=== PATIENT | male | born 1950 | race Caucasian/White ===

== ENCOUNTER 2017-10-20 09:53 | Observation (INO) | payer MEDICARE ==
[~2017-10-20] VITALS: Ht 185.4 cm; Wt 113.4 kg
[2017-10-20] MEDS ORDERED: NITROGLYCERIN 0.4 MG SUBL SL PRN ×2 (10:15→13:15)
[2017-10-20] MEDS ORDERED: ASPIRIN 325 MG TAB PO ONE ×2 (10:15→14:30)
--- NOTE | 2017-10-20 10:59 | Diagnostic Imaging Report ---
PROCEDURE:X-RAY CHEST, ONE VIEW COMPARISON:None. INDICATIONS:CHEST PAIN FINDINGS: There are no consolidations, pleural effusions or pneumothorax. The cardiomediastinal silhouette and pulmonary vasculature are normal. There are no acute osseous abnormalities. There are degenerative changes of the spine. Chronic appearing left AC joint separation. CONCLUSION: No acute cardiopulmonary abnormality. Noe Brand D.O. Dictated by: Noe Brand D.O. on 10/20/2017 at 11:00 Electronically approved by: Noe Brand D.O. on 10/20/2017 at 11:00
[2017-10-20] MEDS ORDERED: ATORVASTATIN CA10 MG PO (11:42)
[2017-10-20] MEDS ORDERED: METFORMIN HCL500 MG PO (11:42)
[2017-10-20] MEDS ORDERED: COQ-1030 MG PO (11:42)
[2017-10-20] MEDS ORDERED: TAMSULOSIN HCL0.4 MG PO (11:42)
[2017-10-20] MEDS ORDERED: MULTI-VITAMIN1 EACH PO (11:42)
[2017-10-20] MEDS ORDERED: BENAZEPRIL HCL10 MG PO (11:42)
[2017-10-20 11:53] LABS: BASOPHILS # (AUTO) 0.1 (0.0-0.1); BASOPHILS % 0.6 % (0.0-1.0); EOSINOPHILS # (AUTO) 0.1 (0.0-0.4); HEMATOCRIT 40.1 % (38.2-49.6); LYMPHOCYTES # (AUTO) 1.2 (1.0-3.2); LYMPHOCYTES % 15.1 % (18.0-39.1); MEAN CORPUSCULAR HGB CONC 32.4 g/dL (31-35); MEAN CORPUSCULAR VOLUME 86.4 fL (81-99); MONOCYTES # (AUTO) 0.4 (0.2-0.8); MONOCYTES % 5.1 % (4.4-11.3); NEUTROPHILS # (AUTO) 6.4 (2.1-6.9); NEUTROPHILS % 77.8 % (38.7-80.0); PLATELET COUNT 197 x10e3/uL (140-360); RED BLOOD COUNT 4.64 x10e6/uL (4.3-5.7); RED CELL DISTRIBUTION WIDTH 13.2 % (11.7-14.4)
[2017-10-20 12:12] LABS: ALANINE AMINOTRANSFERASE 32 IU/L (0-55); ALBUMIN 3.8 g/dL (3.5-5.0); ALBUMIN/GLOBULIN RATIO 0.9 (0.8-2.0); ALKALINE PHOSPHATASE 73 IU/L (40-150); BLOOD UREA NITROGEN 16 mg/dL (7-26); BUN/CREATININE RATIO 14 (6-25); CARBON DIOXIDE 27 mmol/L (22-29); CHLORIDE 105 mmol/L (98-107); CHOL/HDL RATIO 3.3 (3.9-4.7); CHOLESTEROL 171 MD/DL (0-199); CREATININE, SERUM 1.18 mg/dL (0.72-1.25); EST GLOMERULAR FILTRATION RATE > 60 ML/MIN (60-); GLUCOSE 127 mg/dL (74-118); HDL CHOLESTEROL 52 MG/DL (40-60); LDL CHOLESTEROL 88 MG/DL (60-130); SODIUM 140 mmol/L (136-145); TRIGLYCERIDES 154 MG/DL (0-149)
[2017-10-20] MEDS ORDERED: MORPHINE SULFATE 2 MG/ML SYR IV PRN (13:15)
[2017-10-20] MEDS ORDERED: ASPIRIN 81 MG CHEW TAB PO ONE (13:15)
--- OUTSIDE RECORDS SUMMARY | 2017-10-20 13:57 | XMS REPORT ---
Author Author [facility] Address Unknown Phone Unavailable Care Team Providers Care Building Code Inspector Name Role Phone VERITO GIRARD Unavailable Unavailable Problems This patient has no known problems. Allergies, Adverse Reactions, Alerts This patient has no known allergies or adverse reactions. Medications This patient has no known medications. Results Test Description Test Time Test Comments Text Results Atomic Results Result Comments CHEST SINGLE (NOT PORTABLE) [place] [id number] Patient Name: STEPHANIE ANGULO MR #: [id number] : 1950 Age/Sex: 67/M Req #: [id number] Adm Physician: Ordered by: VERITO GIRARD MD Report #: [id number] Location: ER Room/Bed: Procedure: [id number] DX/CHEST SINGLE (NOT PORTABLE) Exam Date: 10/20/17 Exam Time: 1015 REPORT STATUS: Signed PROCEDURE: X-RAY CHEST, ONE VIEW COMPARISON: None. INDICATIONS: CHEST PAIN FINDINGS: There are no consolidations, pleural effusions or pneumothorax. The cardiomediastinal silhouette and pulmonary vasculature are normal. There are no acute osseous abnormalities. There are degenerative changes of the spine. Chronic appearing left AC joint separation. CONCLUSION: No acute cardiopulmonary abnormality. Ethel Brand D.O. Dictated by: Ethel Brand D.O. on 10/20/2017 at 11:00 Electronically approved by: Ethel Brand D.O. on 10/20/2017 at 11:00 Dictated By: ETHEL BRAND DO 1100 Transcribed By: ROBERTO on 10/20/17 1100 COPY TO: VERITO GIRARD MD
[2017-10-20] MEDS: FAMOTIDINE 20 MG TAB PO SCH (14:20)
[2017-10-20 15:02] LABS: CREATINE KINASE MB 2.2 ng/mL (0-5.0)
[2017-10-20 16:30] VITALS: BP 148/74
[2017-10-20] MEDS ORDERED: PANTOPRAZOLE SO40 MG PO (16:35)
[2017-10-20 16:38] VITALS: BP 148/74
[2017-10-20] MEDS ORDERED: ENOXAPARIN SODIUM INJ 100 MG/ML SYR SC STA (17:49)
[2017-10-20 17:58] LABS: INR 1.06
[2017-10-20 17:59] LABS: PARTIAL THROMBOPLASTIN TIME 27.1 seconds (23.8-35.5)
[2017-10-20] MEDS ORDERED: DEXTROSE 50% SYRINGE 50 ML IV PRN (18:00)
[2017-10-20 18:01] LABS: CREATINE KINASE 153 IU/L (30-200)
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
[2017-10-20 20:00] VITALS: BP 140/65
[2017-10-20 20:15] VITALS: BP 140/65
[2017-10-20] MEDS ORDERED: TAMSULOSIN HCL 0.4 MG CAP PO SCH (21:00)
[2017-10-20] MEDS ORDERED: ATORVASTATIN 10 MG TAB PO SCH (21:00)
[2017-10-20] MEDS: INSULIN LISPRO 100 UNIT/1 ML 3ML VIAL SQ SCH (21:00)
[2017-10-20] MEDS ORDERED: BENAZEPRIL HCL 10 MG TAB PO SCH (21:41)
[2017-10-20 23:03] LABS: CREATINE KINASE 138 IU/L (30-200)
[2017-10-21] VITALS: BP_SYST 129; BP_SYST 148; BP_DIAS 61; BP_DIAS 66
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
[2017-10-21] MEDS: FAMOTIDINE 20 MG TAB PO SCH (02:14)
[2017-10-21 02:45] LABS: CREATINE KINASE 126 IU/L (30-200)
[2017-10-21 05:00] VITALS: BP 140/70
[2017-10-21] MEDS ORDERED: ACETAMINOPHEN 325 MG TAB PO PRN (07:30)
[2017-10-21] MEDS ORDERED: PANTOPRAZOLE SOD 40 MG TABEC PO SCH (07:30)
[2017-10-21 07:33] LABS: ALANINE AMINOTRANSFERASE 26 IU/L (0-55); ALBUMIN 3.4 g/dL (3.5-5.0); ALBUMIN/GLOBULIN RATIO 0.9 (0.8-2.0); ALKALINE PHOSPHATASE 64 IU/L (40-150); ANION GAP 10.7 mmol/L (8-16); BLOOD UREA NITROGEN 16 mg/dL (7-26); BUN/CREATININE RATIO 15 (6-25); CALCIUM 9.6 mg/dL (8.4-10.2); CARBON DIOXIDE 26 mmol/L (22-29); CHLORIDE 102 mmol/L (98-107); CHOL/HDL RATIO 3.5 (3.9-4.7); CHOLESTEROL 152 MD/DL (0-199); CREATININE, SERUM 1.09 mg/dL (0.72-1.25); EST GLOMERULAR FILTRATION RATE > 60 ML/MIN (60-); GLUCOSE 136 mg/dL (74-118); HDL CHOLESTEROL 44 MG/DL (40-60); LDL CHOLESTEROL 67 MG/DL (60-130); POTASSIUM 3.7 mmol/L (3.5-5.1); SODIUM 135 mmol/L (136-145); THYROID STIMULATING HORMONE 2.116 uIU/mL (0.350-4.940); TRIGLYCERIDES 206 MG/DL (0-149)
[2017-10-21 07:49] LABS: BASOPHILS # (AUTO) 0.1 (0.0-0.1); BASOPHILS % 0.8 % (0.0-1.0); EOSINOPHILS # (AUTO) 0.2 (0.0-0.4); EOSINOPHILS % 2.3 % (0.0-6.0); LYMPHOCYTES # (AUTO) 1.8 (1.0-3.2); LYMPHOCYTES % 22.8 % (18.0-39.1); MEAN CORPUSCULAR HEMOGLOBIN 27.8 pg (28-32); MEAN CORPUSCULAR HGB CONC 32.4 g/dL (31-35); MEAN CORPUSCULAR VOLUME 85.8 fL (81-99); MONOCYTES # (AUTO) 0.6 (0.2-0.8); MONOCYTES % 8.1 % (4.4-11.3); NEUTROPHILS # (AUTO) 5.1 (2.1-6.9); NEUTROPHILS % 65.7 % (38.7-80.0); PLATELET COUNT 181 x10e3/uL (140-360); RED BLOOD COUNT 4.31 x10e6/uL (4.3-5.7); RED CELL DISTRIBUTION WIDTH 13.2 % (11.7-14.4)
--- NOTE | 2017-10-21 08:13 | Progress Note ---
DATE: October 21, 2017 TIME: 7:51 a.m. OVERNIGHT: No chest pain. REVIEW OF SYSTEMS: Denies any dizziness. PHYSICAL EXAMINATION VITAL SIGNS: Reviewed. GENERAL: A tired-appearing man resting in bed. HEENT: Anicteric. CARDIOVASCULAR: Normal S1 and S2. LUNGS: Moderate breath sounds. ABDOMEN: Soft and nontender. EXTREMITIES: No edema. SKIN: Dry. PSYCHIATRIC: Flat affect. LABS: Reviewed. MEDICATIONS: Reviewed. ASSESSMENT: A 67-year-old man with: 1. Chest pain. 2. Right sinus discomfort. 3. Diabetes mellitus, type 2. 4. History of cigarette use. 5. Obesity. 6. Hyperlipidemia. 7. Hypertension. 8. BPH. PLAN 1. Stress test possibly this morning. Defer to cardiology. 2. Hemoglobin A1c 7.1, LDL 67 and triglycerides 206. 3. Continue blood pressure control with LUIZA inhibitor. 4. Continue Flomax. 5. The patient did receive Lovenox last night. Will put him on Lovenox prophylactic this morning and continue Pepcid. Job#: [id number] [place]
[2017-10-21 08:37] VITALS: BP 148/72
[2017-10-21] MEDS ORDERED: UBIDECARENONE PO SCH (09:00)
[2017-10-21] MEDS ORDERED: ASPIRIN 81 MG ENTERIC COATED PO SCH (09:00)
[2017-10-21] MEDS ORDERED: MULTIVITAMINS/MINERALS TAB PO SCH (09:00)
[2017-10-21] MEDS ORDERED: BENAZEPRIL HCL 10 MG TAB PO SCH (09:00)
[2017-10-21] MEDS: INSULIN LISPRO 100 UNIT/1 ML 3ML VIAL SQ SCH ×2 (09:13→11:30)
[2017-10-21 10:20] VITALS: BP 148/72
[2017-10-21] MEDS ORDERED: ASPIRIN CHEW81 MG PO (10:51)
[2017-10-21 12:00] VITALS: BP 136/66
[2017-10-21] MEDS ORDERED: ENOXAPARIN SOD INJ 40 MG/0.4 ML SYR SC SCH (17:00)
== END 2017-10-21 11:58 | disposition home or self-care (01) ==
LOC: ER 09:53 → ERHOLD 13:54 → MED/SURG 15:00
PROVIDERS: ADMIT Internal Medicine; ATTEND Internal Medicine
DX: R07.9 Chest pain, unspecified (principal); E11.9 Type 2 diabetes mellitus without complications; E66.9 Obesity, unspecified; E78.5 Hyperlipidemia, unspecified; I10 Essential (primary) hypertension; N40.0 Benign prostatic hyperplasia without lower urinary tract symptoms; Z87.891 Personal history of nicotine dependence; G47.30 Sleep apnea, unspecified
CPT/HCPCS: 36415; 71045; 80053 ×2; 80061 ×2; 82550 ×2; 82553 ×2; 82948 ×2; 83036; 83880; 84443; 84484 ×2; 85025 ×2; 85379; 85610; 85730; 93005 ×2; 93306; 93970; 99284; G0378 ×2; J1650